=== PATIENT | female | born 1990 | race Caucasian/White ===

== ENCOUNTER 2019-11-06 15:56 | Emergency (ER) | payer BC ==
--- NOTE | 2019-11-06 16:27 | EDM.PDOC ---
ED HPI GENERAL MEDICAL PROBLEM - General Chief Complaint: Lower Extremity Injury/Pain Stated Complaint: LEG P[AIN Time Seen by Provider: 11/06/19 16:00 Source of Information: Reports: Patient History Limitations: Reports: No Limitations - History of Present Illness INITIAL COMMENTS - FREE TEXT/NARRATIVE: Patient comes into the emergency department with complaint of right lower extremity discomfort. Patient states that she has had a proximally 3 days worth of lower right extremity cramping sensation. She states that it did progressively get worse this morning. Patient states that she is on her feet for 8-12 hours at a time. She denies any fever, redness, swelling, disproportionate pain, numbness, CMS concerns or range of motion concerns. Patient also denies any shortness of breath, pain or nausea or vomiting. States that her right leg does feel better if she is massaging it or elevating it. Does get worse the longer she is on her feet. Onset: Gradual Improves with: Reports: Rest Worsens with: Reports: Movement Context: Reports: Other Associated Symptoms: Reports: No Other Symptoms Right Pain Score (Numeric/FACES): 6 - Related Data Allergies Allergy/AdvReac Type Severity Reaction Status Date / Time duloxetine [From Cymbalta] Allergy Cannot Verified 11/06/19 16:17 Remember Home Meds: Home Meds levETIRAcetam [Keppra] 500 mg PO BID 11/06/19 [History] Social & Family History - Tobacco Use Smoking Status *Q: Current Every Day Smoker Years of Tobacco use: 10 Packs/Tins Daily: 0.4 - Recreational Drug Use Recreational Drug Use: No Review of Systems - Review of Systems Review Of Systems: See Below Constitutional: Reports: No Symptoms Eyes: Reports: No Symptoms Ears: Reports: No Symptoms Nose: Reports: No Symptoms Mouth/Throat: Reports: No Symptoms Respiratory: Reports: No Symptoms Cardiovascular: Reports: No Symptoms Musculoskeletal: Reports: Leg Pain Skin: Reports: No Symptoms Neurological: Reports: No Symptoms Psychiatric: Reports: No Symptoms ED EXAM, GENERAL - Physical Exam Exam: See Below Exam Limited By: No Limitations General Appearance: Alert, WD/WN, No Apparent Distress Nose: Normal Inspection, Normal Mucosa Throat/Mouth: Normal Inspection, Normal Lips Head: Atraumatic, Normocephalic Respiratory/Chest: No Respiratory Distress, Lungs Clear, Normal Breath Sounds, No Accessory Muscle Use, Chest Non-Tender Cardiovascular: Normal Peripheral Pulses, Regular Rate, Rhythm, No Edema Back Exam: Normal Inspection, Full Range of Motion Extremities: Normal Inspection, Normal Range of Motion, No Pedal Edema, Normal Capillary Refill, Leg Pain. No: Pedal Edema, Slow Capillary Refill, Joint Swelling, Limited Range of Motion, Increased Warmth, Pallor, Redness Neurological: Alert, Oriented Psychiatric: Normal Affect, Normal Mood Skin Exam: Warm, Dry, Intact, Normal Color Course - Vital Signs Last Recorded V/S: Last Vital Signs Temp 37.3 C 11/06/19 16:10 Pulse 97 11/06/19 16:10 Resp 20 11/06/19 16:10 BP 126/69 11/06/19 16:10 Pulse Ox 98 11/06/19 16:10 - Orders/Labs/Meds Labs: Laboratory Tests 11/06/19 11/06/19 11/06/19 Range/Units 16:30 16:30 16:30 WBC 6.4 (4.0-10.0) x10^3/uL RBC 4.29 (4.00-5.50) x10^6/uL Hgb 11.1 L (12.0-16.0) g/dL Hct 33.8 (33.0-47.0) % MCV 78.8 (78.0-93.0) fL MCH 25.9 L (26.0-32.0) pg MCHC 32.8 (32.0-36.0) g/dL RDW Coeff of Fady 14.9 (10.0-15.0) % Plt Count 256 (130-400) x10^3/uL Neut % (Auto) 51.6 (50.0-80.0) % Lymph % (Auto) 39.8 (25.0-50.0) % [place] % (Auto) 6.8 (2.0-11.0) % Eos % (Auto) 1.6 (0.0-4.0) % Baso % (Auto) 0.2 (0.2-1.2) % D-Dimer, Quantitative 0.69 H (<=0.58) mg/LFEU Sodium 141 (136-145) mmol/L Potassium 3.9 (3.5-5.1) mmol/L Chloride 106 (98-107) mmol/L Carbon Dioxide 23 (21-32) mmol/L Anion Gap 15.9 (10-20) mmol/L BUN 12 (7-18) mg/dL Creatinine 0.9 (0.55-1.02) mg/dL Est Cr Clr Drug Dosing 88.88 mL/min Estimated GFR (MDRD) > 60 Glucose 106 (74-106) mg/dL Calcium 8.7 (8.5-10.1) mg/dL Corrected Calcium 9.10 (8.5-10.1) mg/dL Total Bilirubin 0.2 (0.2-1.0) mg/dL AST 18 (15-37) U/L ALT 28 (14-59) U/L Alkaline Phosphatase 94 (46-116) U/L Total Protein 7.4 (6.4-8.2) g/dL Albumin 3.5 (3.4-5.0) g/dL Globulin 3.9 Albumin/Globulin Ratio 0.90 Departure - Departure Time of Disposition: 17:25 Disposition: Home, Self-Care 01 Condition: Good Clinical Impression: Elevated d-dimer Leg pain Qualifiers: Laterality: right Qualified Code(s): M79.604 - Pain in right leg - Discharge Information *PRESCRIPTION DRUG MONITORING PROGRAM REVIEWED*: Not Applicable *COPY OF PRESCRIPTION DRUG MONITORING REPORT IN PATIENT WILLIE: Not Applicable Instructions: Pain Medicine Instructions, [id number], Heat Therapy, Easy-to- Read Referrals: PCP,Not In Area [Primary Care Provider] - Forms: ED Department Discharge Additional Instructions: 1. rest 2. increase your water intake 3. Continue all at home medications 4. Activity and diet as tolerated 5. Can take over the counter Tylenol or ibuprophen for any pain or discomfort 6. Ultrasound to be scheduled Friday Morning. Call call [phone] to set up appointment with Ultrasound. 7. Take 4 baby ASA (325mg total today), and 81mg tomorrow and Friday am 8. Dr. Gan will follow up with Ultrasound results. 9. Call with any questions or concerns Sepsis Event Note - Evaluation Sepsis Screening Result: No Definite Risk - Focused Exam Date Exam was Performed: 11/07/19 Time Exam was Performed: 18:37 - Assessment/Plan Assessment:: 1. right leg pain Plan: 1. Wells's Score for DVT is 1. 2. Labs completed in the ER. Results reviewed with the patient 3. Patient and nursing staff was updated regarding the plan of care 4. Education provided the patient regarding activity, diet, rest, over-the- counter medication modalities, and follow-up care was provided 5. Patient and family are agreeable to the above plan of care 6. All questions and concerns were addressed with the patient and family prior to discharge 7. Ultrasound to be scheduled Friday Morning. Call call [phone] to set up appointment with Ultrasound. 8. Take 4 baby ASA (325mg total today), and 81mg tomorrow and Friday am 9. Dr. Gan was contacted and she is willing to follow up with Ultrasound results with the patient
[2019-11-06 17:04] LABS: CHLORIDE,CL 106 mmol/L (98-107); SODIUM,NA 141 mmol/L (136-145)
[2019-11-06 17:07] LABS: ANION GAP 15.9 mmol/L (10-20)
== END 2019-11-06 17:40 | disposition home or self-care (01) ==
LOC: VM.ED 15:56
DX: M79.604 Pain in right leg (principal); R79.1 Abnormal coagulation profile; F17.210 Nicotine dependence, cigarettes, uncomplicated; Z88.8 Allergy status to other drugs, medicaments and biological substances; Z79.899 Other long term (current) drug therapy
CPT/HCPCS: 36415; 80053; 85025; 85379; 99283

== ENCOUNTER 2020-01-27 03:01 | Emergency (ER) | payer BC ==
[2020-01-27] MEDS ORDERED: Take Home: Amoxicillin 875 MG Tab, 2 Tab Pack PO ONE (03:12)
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
== END 2020-01-27 03:26 | disposition home or self-care (01) ==
LOC: VM.ED 03:01
DX: J02.9 Acute pharyngitis, unspecified (principal); Z88.8 Allergy status to other drugs, medicaments and biological substances; Z91.09 Other allergy status, other than to drugs and biological substances; G40.909 Epilepsy, unspecified, not intractable, without status epilepticus; E66.9 Obesity, unspecified
CPT/HCPCS: 99283; A9270-GY

== ENCOUNTER 2020-08-10 12:19 | Emergency (ER) | payer BC, OTHER ==
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
[2020-08-10] MEDS ORDERED: Ketorolac 30 MG/ML SDV IVPUSH ONE (12:45)
[2020-08-10] MEDS ORDERED: diphenhydrAMINE 50 MG/ML SDV IVPUSH ONE (12:45)
[2020-08-10] MEDS ORDERED: Lactated Ringers 1,000 ML IV ONE (12:45)
[2020-08-10] MEDS ORDERED: Sodium Chloride 0.9% 10 ML Syringe FLUSH PRN (12:45)
[2020-08-10 13:22] LABS: ANION GAP 15.1 mmol/L (10-20); CHLORIDE,CL 102 mmol/L (98-107); SODIUM,NA 136 mmol/L (136-145)
[2020-08-10] MEDS ORDERED: HYDROmorphone 1 MG/ML Syringe IVPUSH ONE (13:47)
[2020-08-10] MEDS ORDERED: Iopamidol 612 MG/ML 100 ML Bottle IVPUSH ONE (14:16)
--- NOTE | 2020-08-14 09:28 | CT ---
[id number] CT/CT Abdomen Pelvis W IV EXAM: ABDOMEN AND PELVIS CT WITH CONTRAST INDICATION: Right upper quadrant and lateral abdominal pain with history of cholecystectomy. COMPARISON: None. DISCUSSION: There are fluid-filled nondilated distal small bowel loops which could be from recent fluid ingestion, enteritis or an ileus. No focal transition point to suggest an abscess reduction. Bilateral small ovarian follicles. The liver is enlarged and demonstrates [id number] fatty infiltration. Cholecystectomy. Mild splenomegaly. Disc degeneration throughout the lumbar spine. The osseous structures are otherwise unremarkable. The pancreas, adrenal glands, kidneys, small bowel, and the appendix are normal in appearance. No adenopathy, free air or significant free fluid. IMPRESSION: 1. Fluid-filled nondilated distal small bowel loops could be from recent fluid ingestion, enteritis or an ileus. No transition point is identified to suggest bowel obstruction. 2. Mild to moderate hepatic steatosis. 3. Mild hepatosplenomegaly. Mariusz Castañeda MD 08/14/20 0927 Thank you for allowing us to participate in the care of your patient.
== END 2020-08-10 15:15 | disposition home or self-care (01) ==
LOC: VM.ED 12:19
DX: R10.11 Right upper quadrant pain (principal); G40.909 Epilepsy, unspecified, not intractable, without status epilepticus; E66.9 Obesity, unspecified; Z68.41 Body mass index [BMI] 40.0-44.9, adult; Z88.8 Allergy status to other drugs, medicaments and biological substances; Z79.899 Other long term (current) drug therapy
CPT/HCPCS: 36415; 74177; 80053; 81003; 81025; 83605; 85025; 86140; 96374; 96375; 99284-25; J1170; J1200; J1885; J7120; Q9967

== ENCOUNTER 2020-08-16 06:50 | Emergency (ER) | payer OTHER ==
[2020-08-16] MEDS ORDERED: Ketorolac 30 MG/ML SDV IM ONE (07:00)
[2020-08-16] MEDS ORDERED: Diazepam 5 MG Tab PO ONE (07:02)
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
[2020-08-16] MEDS ORDERED: HYDROmorphone 1 MG/ML Syringe SUBCUT ONE (08:11)
--- NOTE | 2020-08-16 08:20 | CR ---
[id number] RAD/RAD Pelvis 1-2V Exam: RAD Pelvis 1-2V Clinical Data: BACK PAIN MUSCLE SPASM COMPARISON: CORRELATION IS MADE WITH THE RECENT CAT SCAN FINDINGS: There are early degenerative changes of both hips There is marginal osteophyte of the acetabula and femoral heads IMPRESSION: EARLY BILATERAL DEGENERATIVE CHANGES Joe Gar MD 08/16/20 0819 Thank you for allowing us to participate in the care of your patient.
--- NOTE | 2020-08-16 08:20 | CR ---
[id number] RAD/RAD Hips Bilateral 1-2V EXAM: RAD Hips Bilateral 1-2V CLINICAL DATA: BACK PAIN SPASM COMPARISON: NO PREVIOUS SIMILAR EXAM IS AVAILABLE. FINDINGS: There are early degenerative changes of both hips There is no fracture or dislocation There is marginal osteophyte. IMPRESSION: EARLY DEGENERATIVE CHANGES OF BOTH HIPS Joe Gar MD 08/16/20 0819 Thank you for allowing us to participate in the care of your patient.
== END 2020-08-16 09:04 | disposition home or self-care (01) ==
LOC: VM.ED 06:50 → SUPCPDRO 06:50 → VM.ED 09:04
DX: M62.830 Muscle spasm of back (principal); E66.9 Obesity, unspecified; Z68.41 Body mass index [BMI] 40.0-44.9, adult; Z88.8 Allergy status to other drugs, medicaments and biological substances; Z79.899 Other long term (current) drug therapy
CPT/HCPCS: 36415; 72170; 85025; 96372; 99283; 99283-25; A9270-GY; J1170; J1885

== ENCOUNTER 2021-07-28 18:52 | Emergency (ER) | payer OTHER ==
[2021-07-28] MEDS ORDERED: Take Home: Amoxicillin 500 MG Cap, 2 Cap Pack PO ONE (19:12)
[2021-07-28] MEDS ORDERED: Amoxicillin 500 MG Cap PO ONE (19:16)
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
[2021-07-30] MEDS ORDERED: Take Home: Amoxicillin 500 MG Cap, 2 Cap Pack PO ONE (16:44)
== END 2021-07-28 19:30 | disposition home or self-care (01) ==
LOC: VM.ED 18:52
DX: J02.9 Acute pharyngitis, unspecified (principal); H66.93 Otitis media, unspecified, bilateral; G40.909 Epilepsy, unspecified, not intractable, without status epilepticus; E66.9 Obesity, unspecified; Z68.33 Body mass index [BMI] 33.0-33.9, adult; Z88.8 Allergy status to other drugs, medicaments and biological substances; Z79.899 Other long term (current) drug therapy
CPT/HCPCS: 99282; A9270